=== PATIENT | female | born 1965 | race Caucasian/White ===

== ENCOUNTER → 2016-08-13 | Outpatient (CLI) | payer BC ==
[~2016-08-13] MED LIST: DOXY100C2 PO; GLUCTAB54 PO; MULT-225 PO; ONDA8TAB13 SL
--- NOTE | 2016-08-19 05:41 | CODING QUERY NO DIAGNOSIS ---
TREATMENT RENDERED WITHOUT A DIAGNOSIS To promote full compliance with coding requirements relating to patient care, physician participation is requested in all cases of braille coder uncertainty. Please assist us with providing a diagnosis/symptom for the test(s) below: A diagnosis/symptom was not documented on your Order. A valid diagnosis/symptom is required to bill all insurances. Please remember that we are unable to code a diagnosis of rule out, probable, possible, questionable, or suspected. Tests that require a diagnosis: DOS: 08/13/16 * ENDO BIOPSY DIAGNOSIS: Provider Signature: Date: Thank you [place] [facility] Information Management Once completed, please kindly fax back to [phone] For questions please call [phone]
== END | disposition home or self-care (01) ==
LOC: C.PATHSPEC 17:42
PROVIDERS: ATTEND Obstetrics & Gynecology
DX: N93.9 Abnormal uterine and vaginal bleeding, unspecified (principal)

== ENCOUNTER → 2016-09-01 | Outpatient (CLI) | payer BC | END | disposition home or self-care (01) | LOC: C.PATHSPEC 17:35 | PROVIDERS: ATTEND Obstetrics & Gynecology | DX: N93.9 Abnormal uterine and vaginal bleeding, unspecified (principal); R87.619 Unspecified abnormal cytological findings in specimens from cervix uteri ==

== ENCOUNTER → 2016-11-16 | Outpatient (CLI) | payer BC ==
--- NOTE | 2016-11-18 15:07 | MAMMOGRAPHY REPORT ---
BILATERAL DIGITAL SCREENING MAMMOGRAM TOMOSYNTHESIS WITH CAD: 11/16/2016 CLINICAL HISTORY: Routine screening. Patient has no complaints. TECHNIQUE: Breast tomosynthesis in addition to standard 2D mammography was performed. Current study was also evaluated with a Computer Aided Detection (CAD) system. COMPARISON: Comparison is made to exams dated: 12/03/2015 mammogram, 11/25/2015 mammogram, 11/14/2015 m ammogram, 02/09/2013 mammogram, 07/16/2011 mammogram, and 12/03/2015 stereotactic biopsy - [facility]. BREAST COMPOSITION: The tissue of both breasts is extremely dense, which lowers the sensitivity of mammography. FINDINGS: There are stable post biopsy changes in the 12:00 right breast, with metallic marker in pl baldev. A few scattered stable punctate microcalcifications bilaterally. No suspicious mass, architec tural distortion or cluster of microcalcifications is seen. IMPRESSION: ACR BI-RADS CATEGORY 1: NEGATIVE There is no mammographic evidence of malignancy. A 1 year screening mammogram is recommended. The p atient will receive written notification of the results. Approximately 10% of breast cancers are not detected with mammography. A negative mammographic repor t should not delay biopsy if a clinically suggestive mass is present. Estefani Irving M.D. ay/:11/17/2016 21:22:43 Client Support Manager: Yareli PIPER)(M), [facility] letter sent: Normal 1/2 BI-RADS Code: ACR BI-RADS Category 1: Negative
== END | disposition home or self-care (01) ==
LOC: C.MAMM 09:42
PROVIDERS: ATTEND Nurse Practitioner Family
DX: Z12.31 Encounter for screening mammogram for malignant neoplasm of breast (principal)

== ENCOUNTER → 2017-04-08 | Outpatient (CLI) | payer BC ==
[~2017-04-08] MED LIST changes: +GADAVIST IV PRN
--- NOTE | 2017-04-08 09:43 | DIAGNOSTIC IMAGING REPORT ---
MRI OF THE BRAIN WITHOUT AND WITH IV CONTRAST CLINICAL HISTORY: Abnormal findings on diagnostic imaging of central nervous system. Follow-up exam. COMPARISON STUDY: MRI of the brain March 30, 2016. TECHNIQUE: Utilizing a 1.5 Rafia magnet and dedicated coil, multiplanar, multiecho imaging of the brain was performed pre and postcontrast administration. IV administration of 5 mL of Gadavist contrast was uneventful. FINDINGS: There are no areas of restricted diffusion. No acute intracranial hemorrhage, midline shift or mass effect is present. Brain volume is normal. Ventricular system is normal. Basilar cisterns are patent. There are no extra-axial collections. Flow-voids for the major intracranial vessels are present. There is no intracranial mass or pathologic enhancement. 2 small white matter T2 hyperintense foci within the left temporal lobe are unchanged since MRI of March 30, 2016. No additional areas of signal abnormality are present. Calvarial signal is maintained. Orbits and sinuses are unremarkable. IMPRESSION: 1. No change in the 2 small white matter T2 hyperintense foci within the left temporal lobe since MRI of March 30, 2016. These remain nonspecific but are of doubtful clinical significance. 2. Otherwise, normal MRI of the brain. Electronically signed by: Tapan Chapman M.D. 04/08/2017 9:41 AM Dictated Date/Time: 04/08/2017 9:34 AM
== END | disposition home or self-care (01) ==
LOC: C.MRIBC 08:36
PROVIDERS: ATTEND Physician Assistant
DX: R90.89 Other abnormal findings on diagnostic imaging of central nervous system (principal)

== ENCOUNTER → 2017-12-13 | Outpatient (CLI) | payer BC, OTHER ==
[~2017-12-13] MED LIST changes: -GADAVIST IV PRN
--- NOTE | 2017-12-14 14:20 | MAMMOGRAPHY REPORT ---
BILATERAL DIGITAL SCREENING MAMMOGRAM TOMOSYNTHESIS WITH CAD: 12/13/2017 CLINICAL HISTORY: Routine screening. Patient has no complaints. TECHNIQUE: Breast tomosynthesis in addition to standard 2D mammography was performed. Current study was also evaluated with a Computer Aided Detection (CAD) system. COMPARISON: Comparison is made to exams dated: 11/16/2016 mammogram, 11/14/2015 mammogram, 02/09/2013 m ammogram, 07/16/2011 mammogram - [facility], 11/26/2008, and 11/26/2008. BREAST COMPOSITION: The tissue of both breasts is extremely dense, which lowers the sensitivity of m ammography. FINDINGS: There is a partially circumscribed and obscured 8 mm mass in the upper outer middle one th ird of the left breast, for which additional targeted ultrasound and possible additional mammographic views are recommended, although this could represent a cyst. There is a stable dumbbell-shaped biopsy marker clip in the 12:00 right breast. A few stable microca lcifications in the inferior left breast. No other suspicious mass, architectural distortion or clus ter of microcalcifications is seen. IMPRESSION: ACR BI-RADS CATEGORY 0: INCOMPLETE EVALUATION: NEED ADDITIONAL IMAGING EVALUATION The partially circumscribed and obscured 8 mm mass in the upper outer left breast needs additional ev aluation. The patient will be called to schedule an appointment. Approximately 10% of breast cancers are not detected with mammography. A negative mammographic report should not delay biopsy if a clinically suggestive mass is present. Estefani Irving M.D. ay/:12/13/2017 19:33:21 Clinical Specialist: Yareli PIPER)([place]), [facility] letter sent: Addl Imaging 0 BI-RADS Code: ACR BI-RADS Category 0: Incomplete Evaluation: Need Additional Imaging Evaluation
== END | disposition home or self-care (01) ==
LOC: C.MAMM 10:35
PROVIDERS: ATTEND Nurse Practitioner Family
DX: Z12.31 Encounter for screening mammogram for malignant neoplasm of breast (principal); N63.21 Unspecified lump in the left breast, upper outer quadrant